=== PATIENT | male | born 1985 | race Caucasian/White ===

== ENCOUNTER 2016-10-24 14:39 | Emergency (ER) | payer OTHER ==
[2016-10-24 18:03] VITALS: BP 123/69
== END 2016-10-24 18:03 | disposition home or self-care (01) ==
LOC: ED 14:39
DX: K40.90 Unilateral inguinal hernia, without obstruction or gangrene, not specified as recurrent (principal); F41.9 Anxiety disorder, unspecified; F32.9 Major depressive disorder, single episode, unspecified; Z79.899 Other long term (current) drug therapy; Z88.0 Allergy status to penicillin
CPT/HCPCS: J1885

== ENCOUNTER 2017-04-07 18:47 | Emergency (ER) | payer MEDICAID ==
[~2017-04-07] VITALS: Ht 165.1 cm; Wt 50.3 kg
[2017-04-07 19:43] LABS: PLATELET COUNT 189 x10^3mcL (130-400)
[2017-04-07 19:45] LABS: BASOPHIL % 0 % (0-2); RED CELL DISTRIBUTION WIDTH 14.8 % (11.5-14.5)
[2017-04-07 19:58] LABS: CALCIUM 8.8 mg/dL (8.5-10.1); CARBON DIOXIDE 29.6 mmol/L (21-32); CHLORIDE SERUM 97 mmol/L (98-107); CREATININE SERUM 0.9 mg/dL (0.7-1.3); GFR1 > 60 mL/min; GLUCOSE SERUM 133 mg/dL (74-106); POTASSIUM SERUM 3.3 mmol/L (3.5-5.1); SODIUM SERUM 136 mmol/L (136-145)
[2017-04-07 20:02] LABS: ALBUMIN 3.9 g/dL (3.4-5.0); ALKALINE PHOSPHATASE 68 U/L (46-116); ALT/SGPT 17 U/L (16-63); AST/SGOT 11 U/L (15-37); BILIRUBIN TOTAL 0.5 mg/dL (0.20-1.00); TOTAL PROTEIN, SERUM 7.9 g/dL (6.4-8.2)
[2017-04-07 23:06] VITALS: BP 109/77
== END 2017-04-07 23:06 | disposition home or self-care (01) ==
LOC: ED 18:47
PROVIDERS: Emergency Medicine
DX: R53.1 Weakness (principal); M54.5 Low back pain; F32.9 Major depressive disorder, single episode, unspecified; F41.9 Anxiety disorder, unspecified; Z88.0 Allergy status to penicillin; Z86.59 Personal history of other mental and behavioral disorders
CPT/HCPCS: G0480; J1885; J2060

== ENCOUNTER 2017-04-08 10:47 | Emergency (ER) | payer MEDICAID ==
[~2017-04-08] VITALS: Ht 165.1 cm; Wt 49.9 kg
[2017-04-08 10:52] VITALS: BP 102/70
== END 2017-04-08 11:03 | disposition home or self-care (01) ==
LOC: ED 10:47
DX: Z02.79 Encounter for issue of other medical certificate (principal); Z88.0 Allergy status to penicillin

== ENCOUNTER 2019-10-09 08:53 | Emergency (ER) | payer MEDICAID ==
[~2019-10-09] VITALS: Ht 165.1 cm; Wt 54.0 kg
[2019-10-09 09:13] VITALS: BP 106/80; Ht 165.1 cm; Wt 54.0 kg
== END 2019-10-09 09:46 | disposition home or self-care (01) ==
LOC: ED 08:53
DX: F32.9 Major depressive disorder, single episode, unspecified (principal); F41.9 Anxiety disorder, unspecified; Z76.0 Encounter for issue of repeat prescription; Z88.0 Allergy status to penicillin